=== PATIENT | male | born 1985 | race Caucasian/White ===

== ENCOUNTER 2017-01-28 23:06 | Emergency (ER) | payer BC ==
[~2017-01-28 23:06] MED LIST: FLEXERIL10 MG PO; HYDROCODONE-APA1 T56 PO; IBUPROFEN800 MG PO; NO MEDICATIONS; ORUDIS75 M1 DOB; ORUDIS75 M1 PO; POLYMYXIN B/TMP10 M1 OS; PREDNISONE PO; VICODIN 5/500 T1 TAB PO; ZITHROMAX PO
== END 2017-01-29 00:12 | disposition home or self-care (01) ==
LOC: SED 23:06
DX: B35.6 Tinea cruris (principal)
CPT/HCPCS: 82947; 99282